=== PATIENT | male | born 1980 | race Two or more races ===

== ENCOUNTER 2019-10-26 20:27 | Emergency (ER) | payer OTHER ==
[2019-10-26 20:41] VITALS: TEMP 98.3; BMI 33.5
--- NOTE | 2019-10-26 20:54 | PDOC ---
Documentation entered by Cassandra Patel SCRIBE, acting as scribe for Vangie Chowdhury MD. Vangie Chowdhury MD: This documentation has been prepared by the Gilda beard Sydney, SCRIBE, under my direction and personally reviewed by me in its entirety. I confirm that the documentation accurately reflects all work, treatment, procedures, and medical decision making performed by me. Attending Attestation - Resident Resident Name: Mary Medeiros - ED Attending Attestation I have performed the following: I have examined & evaluated the patient, The case was reviewed & discussed with the resident, I agree w/resident's findings & plan, Exceptions are as noted - HPI HPI: 10/26/19 21:43 Patient is a 41 year old male with no significant past medical history who presents to the ED with two days of worsening right-sided chest pain. As per patient, he was seen at an Urgent Care on Sunday for his non-radiating chest pain and was prescribed antibiotics of which he is unsure of the name. Patient also endorses 2-3 of nonproductive cough and several months of a sharp, shooting RLE pain beginning at his knee and shooting downwards. He notes a family member had a history of blood clots and was concerned his symptoms might be related prompting his arrival to the ED. Denies fever, chills, headache, shortness of breath, nausea, vomiting, diarrhea, or urinary changes. Allergies: NKDA - Physicial Exam PE: 10/26/19 21:03 wnwd 39 yo male p/w chest pain and leg pain and chronic rash head ncat neck supple lungs cta b/l cvs [id number] abdomen nontender extremities no edema skin mild folliculitis where he shaved the hair from his abdomen neuro axox3,ambulatory 10/26/19 22:40 - Medical Decision Making 10/26/19 21:04 ekg NSR @ 83 bpm,normal QTc 10/26/19 21:46 Past medical history none Social history half pack to 1 pack a day tobacco use since age 14 10/26/19 22:05 He does not have a regular PCP but will go to different urgent cares for his concerns he came tonight because a family member had a h./o of a blood clot and he thought his leg pain maybe a clot. However he has had this intermittent shooting right leg pain for months,there is no erythema , no swelling and there is a negative Roselia's sign. He denies any recent trauma 10/26/19 23:19 negative troponin cbc unremarkable chemistries reviewed and he has sl elevated glucose =128, he was told to follow up with PCP cxr no consolidations, no ptx, normal mediastinum, increased interstitial markings 10/26/19 23:26 imp cough/ skin irritation s/p shaving/ musculoskeletal leg pain plan referred to [facility] group Discharge - Discharge Information Problems reviewed: Yes Clinical Impression/Diagnosis: Chest pain, Leg pain, right Condition: Stable Disposition: HOME - Additional Discharge Information Prescriptions: predniSONE [Deltasone -] 40 mg PO DAILY #4 tablet Albuterol Sulfate Inhaler - [Ventolin Hfa Inhaler -] 1 puff IH BID #1 inhaler - Follow up/Referral Referrals: [facility] [place] [Provider Group] - Patient Discharge Instructions Patient Printed Discharge Instructions: DI for Atypical Chest Pain Additional Instructions: 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 Take the prednisone for 4 days. Take the inhaler as needed up to twice per day. Follow up with you PCP for further workup and monitoring of your condition. Return to the ED if your symptoms worsen and/or you experience leg pain/swelling, shortness of breath, chest pain, nausea, vomiting, abdominal pain, fevers, chills, light headedness. - Post Discharge Activity
--- NOTE | 2019-10-26 21:32 | PDOC ---
History of Present Illness - General Chief Complaint: Chest Pain Stated Complaint: CHEST/LEG PAIN - History of Present Illness Initial Comments: 39 yo male with no significant PMH presents with right leg pain, chest pain, and an abdominal rash. The right leg pain has been ongoing for >6 month, sharp, starts below the knee and shoots down the foot, worse when he lays on the right side, and alleviated by tylenol/ibuprofen. The chest pain is right sided, non exertional, non-pleuritic non-radiating, and currently resolved. His rash has been going on for multiple month, is pruitic, across the lower abdomen. He recently had a URI that he was seen at the urgent care for and prescribed an "antibiotic that starts with an "a"". He has a family history of DVT. He denies fevers, chills, nvd, sob, wheezing, orthopnea, back pain. 10/26/19 22:05 Past History - Medical History Allergies/Adverse Reactions: Allergies Allergy/AdvReac Type Severity Reaction Status Date / Time No Known Allergies Allergy Verified 10/26/19 20:41 Home Medications: Ambulatory Orders Albuterol Sulfate Inhaler - [Ventolin Hfa Inhaler -] 1 puff IH BID #1 inhaler 10/26/19 predniSONE [Deltasone -] 40 mg PO DAILY #4 tablet 10/26/19 COPD: No - Psycho-Social/Smoking History Smoking History: Current some day smoker Number of Cigarettes Smoked Daily: 5 Information on smoking cessation initiated: No - Substance Abuse Hx (Audit-C & DAST Scrn) How often the patient has a drink containing alcohol: Never Score: In Men: 4 or > Positive; In Women: 3 or > Positive: 0 Screen Result (Pos requires Nsg. Audit-10AR): Negative In the last yr the pt used illegal drug/Rx for NonMed reason: No Score: Yes response is considered Positive: 0 Screen Result (Positive result requires Nsg. DAST-10): Negative Review of Systems - Review of Systems Constitutional: No: Chills, Fever HEENTM: No: Recent change in vision, Double Vision Respiratory: No: Cough, Shortness of Breath Cardiac (ROS): Yes: Chest Pain. No: Palpitations, Syncope, Chest Tightness ABD/GI: No: Diarrhea, Nausea, Vomiting : No: Dysuria, Discharge, Flank Pain, Hematuria Musculoskeletal: Yes: Other (right leg pain). No: Back Pain Integumentary: No: Erythema, Lesions Neurological: No: Headache, Ataxia, Dizziness Psychiatric: No: Anxiety, Depression, Mood Swings Endocrine: No: Intolerance to Cold, Intolerance to Heat *Physical Exam - Vital Signs Last Vital Signs Temp Pulse Resp BP Pulse Ox 98.3 F 93 H 19 122/78 99 10/26/19 20:36 10/26/19 20:36 10/26/19 20:36 10/26/19 20:36 10/26/19 20:36 - Physical Exam General Appearance: Yes: Appropriately Dressed. No: Apparent Distress HEENT: positive: EOMI, Normal Voice Respiratory/Chest: positive: Lungs Clear, Normal Breath Sounds. negative: Respiratory Distress Cardiovascular: positive: Regular Rhythm, Regular Rate, S1, S2. negative: Edema, JVD Gastrointestinal/Abdominal: positive: Flat, Soft. negative: Tender Musculoskeletal: positive: Normal Inspection. negative: CVA Tenderness Extremity: positive: Normal Capillary Refill, Normal Inspection, Normal Range of Motion. negative: Coldness, Cyanosis, Pedal Edema, Swelling, Calf Tenderness Integumentary: positive: Normal Color, Dry, Warm Neurologic: positive: Fully Oriented, Alert, Normal Mood/Affect ED Treatment Course - LABORATORY CBC & Chemistry Diagram: 10/26/19 21:41 10/26/19 21:41 Medical Decision Making - Medical Decision Making 39 yo male with no significant PMH presents with Leg Pain + Chest Pain + a Pruritic Rash. Rash- most likely irritation from shaving Leg Pain- most likely neuromuscular due to chronic hx (>6month) with sharp shooting pain Chest Pain- currently resolved - Heart Score = 2 - cardiac profile negative - cbc/cmp normal - chest xray- shows interstitial markings, follow up with PCP Pt treated with 40mg prednisone and given 4 day supply prescription Pt treated with Duoneb breathing treatment and given albuterol inhaler pr escription Discussed discontinuing smoking Discussed following up with a primary physician Stable for discharge Discharge - Discharge Information Problems reviewed: Yes Clinical Impression/Diagnosis: Chest pain, Leg pain, right Condition: Stable Disposition: HOME - Admission No - Additional Discharge Information Prescriptions: predniSONE [Deltasone -] 40 mg PO DAILY #4 tablet Albuterol Sulfate Inhaler - [Ventolin Hfa Inhaler -] 1 puff IH BID #1 inhaler - Follow up/Referral Referrals: [facility] [place] [Provider Group] - Patient Discharge Instructions Patient Printed Discharge Instructions: DI for Atypical Chest Pain Additional Instructions: 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 Take the prednisone for 4 days. Take the inhaler as needed up to twice per day. Follow up with you PCP for further workup and monitoring of your condition. Return to the ED if your symptoms worsen and/or you experience leg pain/swelling, shortness of breath, chest pain, nausea, vomiting, abdominal pain, fevers, chills, light headedness. - Post Discharge Activity
[2019-10-26] MEDS ORDERED: ALBUTEROL SO4 2.5/IPRATROPIUM 0.5 INH SOL 3 ML VIAL.NEB. NEB ONE ×2 (22:05→22:15)
[2019-10-26 22:14] LABS: HEMATOCRIT 44.8 % (35.4-49); HEMOGLOBIN 15.2 GM/dL (11.7-16.9); MCH 28.6 pg (25.7-33.7); MCHC 33.8 g/dl (32.0-35.9); MEAN CELL VOLUME 84.7 fl (80-96); MEAN PLT VOLUME 9.3 fl (7.5-11.1); PLATELET COUNT 252 K/MM3 (134-434); RBC 5.29 M/mm3 (4.00-5.60); RDW 13.8 % (11.9-15.9); WHITE BLOOD COUNT 10.8 K/mm3 (4.0-10.0)
[2019-10-26] MEDS ORDERED: predniSONE 20 MG TABLET (UD) PO ONE (22:56)
[2019-10-26 23:02] LABS: ALBUMIN 3.7 g/dl (3.4-5.0); ALK PHOS 59 U/L (45-117); ANION GAP 8 MMOL/L (8-16); BILIRUBIN,TOTAL 0.2 mg/dL (0.2-1); BLOOD UREA NITROGEN 14.9 mg/dL (7-18); CHLORIDE 106 mmol/L (98-107); CO2 26 mmol/L (21-32); CREATININE 0.9 mg/dL (0.55-1.3); GLUCOSE,RANDOM 128 mg/dL (74-106); POTASSIUM 3.9 mmol/L (3.5-5.1); SGOT/AST 18 U/L (15-37); SGPT/ALT 31 U/L (13-61); SODIUM 140 mmol/L (136-145); TOT PROT 6.7 g/dl (6.4-8.2)
[2019-10-26] MEDS ORDERED: predniSONE 20 MG TABLET (UD) ONE (23:23)
[2019-10-26 23:32] VITALS: BP 129/87; PULSE 82
--- NOTE | 2019-10-29 13:11 | EKG ---
Test Reason : Blood Pressure : / mmHG Vent. Rate : 083 BPM Atrial Rate : 083 BPM P-R Int : 140 ms QRS Dur : 078 ms QT Int : 348 ms P-R-T Axes : 040 039 038 degrees QTc Int : 408 ms NORMAL SINUS RHYTHM NORMAL ECG NO PREVIOUS ECGS AVAILABLE Confirmed by MD JOHN, IRINA ([id number]) on 10/29/2019 1:11:19 PM Referred By: Confirmed By:IRINA LOPEZ MD
== END 2019-10-26 23:32 | disposition home or self-care (01) ==
LOC: JER 20:27
PROC: 3E0F7GC Introduction of Other Therapeutic Substance into Respiratory Tract, Via Natural or Artificial Opening (ICD-10-PCS; principal; 2019-10-26)
DX: R07.9 Chest pain, unspecified (principal); M79.604 Pain in right leg
CPT/HCPCS: 36415; 71046-TC-FY; 80053; 82550; 82553; 84484; 85027; 93005; 93010; 99284-25